=== PATIENT | male | born 1965 | race Caucasian/White ===

== ENCOUNTER 2022-04-11 15:24 | Emergency (ER) | payer MEDICARE, MEDICAID ==
[2022-04-11 15:41] VITALS: BP 175/156
[2022-04-11 15:56] LABS: BASO% 0.4 % (0-3); EOS% 1.1 % (0-8); HEMATOCRIT 48.7 % (39.0-50.0); HEMOGLOBIN 16.8 g/dl (14.0-18.0); IMMATURE GRANULOCYTES 0.3 % (0.0-5.0); LYMPH% 15.5 % (15-41); MEAN CELL VOLUME 86.2 fL CALC (80.0-100.0); MEAN CORPUSCULAR HGB 29.7 pG CALC (26.0-32.0); MEAN CORPUSCULAR HGB CONC 34.5 g/dL CAL (32.0-36.0); MONO% 5.9 % (2-13); NEUT# 8.11 thou/uL (1.82-7.42); NEUT% 76.8 % (42-76); RED BLOOD COUNT 5.65 mill/uL (4.70-6.10); RED CELL DISTRI WIDTH 13.3 % (11.5-15.5)
[2022-04-11] MEDS ORDERED: GABAPENTIN100 MG PO (16:02)
[2022-04-11] MEDS ORDERED: LYRICA50 MG PO (16:02)
[2022-04-11] MEDS ORDERED: ATORVASTATIN CA1 POW (16:03)
[2022-04-11] MEDS ORDERED: NORVASC2.5 M1 PO (16:04)
[2022-04-11] MEDS ORDERED: METFORMIN500 M2 PO (16:04)
[2022-04-11] MEDS ORDERED: FENOFIBRATE145 MG PO (16:04)
[2022-04-11] MEDS ORDERED: PRILOSEC20 MG/CAP PO (16:05)
[2022-04-11] MEDS ORDERED: LOSARTAN POTASS25 MG PO (16:05)
[2022-04-11] MEDS ORDERED: HUMALOG100 UNIT (16:06)
[2022-04-11] MEDS ORDERED: LANTUS100 UNIT (16:06)
[2022-04-11 16:18] LABS: ALKALINE PHOSPHATASE 95 u/l (38-126); ANION GAP 15 (6-22 (CALC)); BILIRUBIN, TOTAL 0.5 mg/dL (0.0-1.4); BUN 16 mg/dL (9-20); BUN/CREATININE RATIO 15 (12-20 (CALC)); CARBON DIOXIDE 24 mmol/l (22-30); CHLORIDE 105 mmol/l (95-108); CREATININE 1.1 mg/dL (0.7-1.3); GFR FOR AFR.AMER. > 60 ML/MIN (>=60 (CALC)); GFR OTHER RACES > 60 ML/MIN (>=60 (CALC)); LIPASE 155 u/l (23-300); POTASSIUM 4.4 mmol/l (3.5-5.1); SGOT/AST 43 u/l (17-59); SODIUM 140 mmol/l (137-146); TOTAL PROTEIN 8.3 g/dL (6.3-8.2)
[2022-04-11 18:49] LABS: URINE BILIRUBIN - DIPSTICK NEGATIVE (NEGATIVE); URINE BLOOD DIPSTICK NEGATIVE (NEGATIVE); URINE COLOR YELLOW; URINE GLUCOSE - DIPSTICK >=1000 mg/dL (NEGATIVE); URINE KETONE NEGATIVE (NEGATIVE); URINE LEUK ESTERASE NEGATIVE (NEGATIVE); URINE PH 7.5 (4.5-8.0); URINE PROTEIN - DIPSTICK 30 mg/dL (NEG-TRACE); URINE SPECIFIC GRAVITY 1.015; URINE UROBILINOGEN - DIPSTICK 0.2 E.U./dL (0.2)
[2022-04-11 18:50] LABS: URINE NITRITE - DIPSTICK NEGATIVE (Negative)
[2022-04-11] MEDS ORDERED: PREVACID30 M3 PO (19:11)
[2022-04-11] MEDS ORDERED: ONDANSETRON4 MG PO (19:11)
[2022-04-11] MEDS ORDERED: CARAFATE PO (19:11)
[2022-04-11 19:25] VITALS: BP 158/85
[2022-04-11 19:28] VITALS: BP 158/85
[2022-04-15] MEDS ORDERED: PROMETHAZINE HY25 M1 PO (15:05)
== END 2022-04-11 19:29 | disposition home or self-care (01) ==
LOC: ED 15:24
PROVIDERS: Emergency Medicine
DX: K29.70 Gastritis, unspecified, without bleeding (principal); E11.9 Type 2 diabetes mellitus without complications; Z79.4 Long term (current) use of insulin; Z79.84 Long term (current) use of oral hypoglycemic drugs
CPT/HCPCS: Q9967

== ENCOUNTER 2022-05-02 21:41 | Emergency (ER) | payer MEDICAID ==
[~2022-05-02] VITALS: Ht 180.3 cm; Wt 145.0 kg
[~2022-05-02 21:41] MED LIST: ATORVASTATIN CA1 POW; CARAFATE PO; FENOFIBRATE145 MG PO; GABAPENTIN100 MG PO; HUMALOG100 UNIT; LANTUS100 UNIT; LOSARTAN POTASS25 MG PO; LYRICA50 MG PO; METFORMIN500 M2 PO; NORVASC2.5 M1 PO; ONDANSETRON4 MG PO; PREVACID30 M3 PO; PRILOSEC20 MG/CAP PO; PROMETHAZINE HY25 M1 PO
[2022-05-02 23:02] LABS: BASO% 0.4 % (0-3); HEMATOCRIT 49.7 % (39.0-50.0); HEMOGLOBIN 16.6 g/dl (14.0-18.0); IMMATURE GRANULOCYTES 0.4 % (0.0-5.0); LYMPH% 13.5 % (15-41); MEAN CORPUSCULAR HGB 29.1 pG CALC (26.0-32.0); MEAN CORPUSCULAR HGB CONC 33.4 g/dL CAL (32.0-36.0); MONO% 5.4 % (2-13); NEUT# 12.36 thou/uL (1.82-7.42); NEUT% 78.3 % (42-76); RED BLOOD COUNT 5.71 mill/uL (4.70-6.10); RED CELL DISTRI WIDTH 13.1 % (11.5-15.5)
[2022-05-02 23:12] LABS: ALKALINE PHOSPHATASE 100 u/l (38-126); ANION GAP 16 (6-22 (CALC)); BILIRUBIN, TOTAL 0.7 mg/dL (0.0-1.4); BUN 17 mg/dL (9-20); BUN/CREATININE RATIO 12 (12-20 (CALC)); CARBON DIOXIDE 25 mmol/l (22-30); CHLORIDE 105 mmol/l (95-108); CREATININE 1.4 mg/dL (0.7-1.3); GFR FOR AFR.AMER. > 60 ML/MIN (>=60 (CALC)); GFR OTHER RACES 53 ML/MIN (>=60 (CALC)); LIPASE 161 u/l (23-300); POTASSIUM 4.9 mmol/l (3.5-5.1); SGOT/AST 58 u/l (17-59); SODIUM 140 mmol/l (137-146)
[2022-05-03 00:44] LABS: URINE BILIRUBIN - DIPSTICK NEGATIVE (NEGATIVE); URINE BLOOD DIPSTICK NEGATIVE (NEGATIVE); URINE COLOR YELLOW; URINE GLUCOSE - DIPSTICK >=1000 mg/dL (NEGATIVE); URINE KETONE 15 mg/dL (NEGATIVE); URINE LEUK ESTERASE NEGATIVE (NEGATIVE); URINE NITRITE - DIPSTICK NEGATIVE (Negative); URINE PH 5.5 (4.5-8.0); URINE PROTEIN - DIPSTICK 100 mg/dL (NEG-TRACE); URINE SPECIFIC GRAVITY >=1.030; URINE UROBILINOGEN - DIPSTICK 0.2 E.U./dL (0.2)
[2022-05-03 00:58] LABS: URINE MUCUS FEW hpf (NONE-FEW); URINE SQUAMOUS EPITHELIAL CELL FEW EPI/hpf (0-FEW); URINE WBC 0-2 WBC/hpf (0-5)
[2022-05-03] MEDS ORDERED: DICYCLOMINE10 MG PO (02:34)
[2022-05-03] MEDS ORDERED: PROCHLORPER25 MG RE (02:34)
[2022-05-03 02:42] VITALS: BP 184/113
== END 2022-05-03 02:53 | disposition home or self-care (01) ==
LOC: ED 21:41
PROVIDERS: Family Medicine
DX: R11.2 Nausea with vomiting, unspecified (principal); R10.11 Right upper quadrant pain; R10.12 Left upper quadrant pain; I10 Essential (primary) hypertension; E11.9 Type 2 diabetes mellitus without complications; Z79.84 Long term (current) use of oral hypoglycemic drugs; Z79.4 Long term (current) use of insulin
CPT/HCPCS: Q9967

== ENCOUNTER 2022-05-08 10:17 | Emergency (ER) | payer MEDICAID ==
[~2022-05-08] VITALS: Ht 180.3 cm; Wt 147.7 kg
[~2022-05-08 10:17] MED LIST changes: +DICYCLOMINE10 MG PO; +PROCHLORPER25 MG RE
[2022-05-08 10:35] VITALS: BP 185/108
[2022-05-08 10:52] LABS: BASO% 0.7 % (0-3); EOS% 2.2 % (0-8); HEMATOCRIT 49.4 % (39.0-50.0); HEMOGLOBIN 16.8 g/dl (14.0-18.0); IMMATURE GRANULOCYTES 0.4 % (0.0-5.0); MEAN CELL VOLUME 84.7 fL CALC (80.0-100.0); MEAN CORPUSCULAR HGB 28.8 pG CALC (26.0-32.0); MONO% 8.4 % (2-13); NEUT# 6.71 thou/uL (1.82-7.42); NEUT% 67.3 % (42-76); RED BLOOD COUNT 5.83 mill/uL (4.70-6.10)
[2022-05-08 10:54] LABS: GFR FOR AFR.AMER. > 60 ML/MIN (>=60 (CALC)); GFR OTHER RACES 57 ML/MIN (>=60 (CALC))
[2022-05-08 11:06] LABS: ALBUMIN 4.8 g/dL (3.2-5.0); ALKALINE PHOSPHATASE 109 u/l (38-126); ANION GAP 14 (6-22 (CALC)); BILIRUBIN, TOTAL 0.7 mg/dL (0.0-1.4); BUN 21 mg/dL (9-20); BUN/CREATININE RATIO 18 (12-20 (CALC)); CARBON DIOXIDE 23 mmol/l (22-30); CHLORIDE 107 mmol/l (95-108); CREATININE 1.2 mg/dL (0.7-1.3); GFR FOR AFR.AMER. > 60 ML/MIN (>=60 (CALC)); GFR OTHER RACES > 60 ML/MIN (>=60 (CALC)); LIPASE 150 u/l (23-300); SGOT/AST 49 u/l (17-59); SODIUM 140 mmol/l (137-146); TOTAL PROTEIN 8.2 g/dL (6.3-8.2)
[2022-05-08 12:13] LABS: URINE BILIRUBIN - DIPSTICK NEGATIVE (NEGATIVE); URINE BLOOD DIPSTICK NEGATIVE (NEGATIVE); URINE COLOR YELLOW; URINE GLUCOSE - DIPSTICK 250 mg/dL (NEGATIVE); URINE KETONE TRACE mg/dL (NEGATIVE); URINE LEUK ESTERASE NEGATIVE (NEGATIVE); URINE PROTEIN - DIPSTICK 100 mg/dL (NEG-TRACE); URINE SPECIFIC GRAVITY >=1.030; URINE UROBILINOGEN - DIPSTICK 0.2 E.U./dL (0.2)
[2022-05-08 12:15] LABS: URINE NITRITE - DIPSTICK NEGATIVE (Negative)
[2022-05-08 12:16] LABS: URINE MUCUS MODERATE hpf (NONE-FEW)
[2022-05-08 14:51] VITALS: BP 185/108
== END 2022-05-08 15:00 | disposition home or self-care (01) ==
LOC: ED 10:17
PROVIDERS: Family Medicine
DX: K59.00 Constipation, unspecified (principal); I10 Essential (primary) hypertension; E11.9 Type 2 diabetes mellitus without complications; Z79.84 Long term (current) use of oral hypoglycemic drugs; Z79.4 Long term (current) use of insulin

== ENCOUNTER 2022-05-15 12:24 | Observation (INO) | payer MEDICAID ==
[2022-05-15] VITALS (12 sets, daily range): BP systolic 136–187; BP diastolic 66–100
[~2022-05-15] VITALS: Ht 185.4 cm; Wt 147.0 kg
[~2022-05-15 12:24] MED LIST changes: -ATORVASTATIN CA1 POW; -HUMALOG100 UNIT; -LANTUS100 UNIT; +LANTUS100 UNIT SC; +LIPITOR40 M1 PO; +[UNRECOGNIZED DRUG - OTHER] SC
[2022-05-15 12:59] LABS: GFR FOR AFR.AMER. > 60 ML/MIN (>=60 (CALC)); GFR OTHER RACES > 60 ML/MIN (>=60 (CALC))
[2022-05-15 13:05] LABS: BASO% 0.6 % (0-3); EOS% 0.8 % (0-8); HEMATOCRIT 48.9 % (39.0-50.0); HEMOGLOBIN 16.8 g/dl (14.0-18.0); IMMATURE GRANULOCYTES 0.6 % (0.0-5.0); MEAN CELL VOLUME 84.7 fL CALC (80.0-100.0); MEAN CORPUSCULAR HGB 29.1 pG CALC (26.0-32.0); MEAN CORPUSCULAR HGB CONC 34.4 g/dL CAL (32.0-36.0); MONO% 4.4 % (2-13); NEUT# 9.08 thou/uL (1.82-7.42); NEUT% 82.6 % (42-76); RED BLOOD COUNT 5.77 mill/uL (4.70-6.10); RED CELL DISTRI WIDTH 12.8 % (11.5-15.5)
[2022-05-15 13:10] LABS: ANION GAP 15 (6-22 (CALC)); BUN 19 mg/dL (9-20); BUN/CREATININE RATIO 22 (12-20 (CALC)); CARBON DIOXIDE 24 mmol/l (22-30); CHLORIDE 102 mmol/l (95-108); CREATININE 0.8 mg/dL (0.7-1.3); GFR FOR AFR.AMER. > 60 ML/MIN (>=60 (CALC)); GFR OTHER RACES > 60 ML/MIN (>=60 (CALC)); POTASSIUM 4.5 mmol/l (3.5-5.1); SODIUM 136 mmol/l (137-146)
[2022-05-15 13:11] LABS: ALBUMIN 4.8 g/dL (3.2-5.0); ALKALINE PHOSPHATASE 150 u/l (38-126); BILIRUBIN, TOTAL 0.6 mg/dL (0.2-1.3); LIPASE 105 u/l (23-300); SGOT/AST 43 u/l (17-59); TOTAL PROTEIN 8.3 g/dL (6.3-8.2)
[2022-05-15 14:26] LABS: URINE BILIRUBIN - DIPSTICK NEGATIVE (NEGATIVE); URINE BLOOD DIPSTICK NEGATIVE (NEGATIVE); URINE COLOR YELLOW; URINE GLUCOSE - DIPSTICK >=1000 mg/dL (NEGATIVE); URINE KETONE TRACE mg/dL (NEGATIVE); URINE LEUK ESTERASE NEGATIVE (Negative); URINE NITRITE - DIPSTICK NEGATIVE (Negative); URINE PROTEIN - DIPSTICK 30 mg/dL (NEG-TRACE); URINE SPECIFIC GRAVITY 1.015; URINE UROBILINOGEN - DIPSTICK 0.2 E.U./dL (0.2)
[2022-05-15 14:43] LABS: URINE CLARITY SL CLOUDY
[2022-05-15 14:44] LABS: URINE EPITHELIAL CELLS FEW EPI/hpf (0-FEW); URINE MUCUS MODERATE hpf (NONE-FEW)
[2022-05-16] VITALS: BP 137/66
[2022-05-16 03:06] LABS: CHOLESTEROL HDL RATIO 8.1 (<4.4 (CALC)); HDL CHOLESTEROL 34 mg/dL (39.0-59.0); MAGNESIUM 1.7 mg/dL (1.6-2.3); TOTAL CHOLESTEROL 275 mg/dl (0-199)
[2022-05-16 03:14] LABS: TOTAL TRIGLYCERIDES 993 mg/dl (0-149)
[2022-05-16 03:58] VITALS: BP 141/62
[2022-05-16 04:00] VITALS: BP 141/62
[2022-05-16 06:43] VITALS: BP 167/83
[2022-05-16] MEDS ORDERED: VENTOLIN HF1 IN (07:23)
[2022-05-16 11:19] VITALS: BP 147/82
[2022-05-16] MEDS ORDERED: LOSARTAN POTASS25 MG PO (11:38)
[2022-05-16] MEDS ORDERED: NORVASC2.5 M1 PO (11:38)
[2022-05-16] MEDS ORDERED: LIPITOR40 M1 PO (11:38)
[2022-05-16] MEDS ORDERED: [UNRECOGNIZED DRUG - OTHER] SC (11:39)
[2022-05-16] MEDS ORDERED: ONDANSETRON4 MG PO (11:39)
[2022-05-16] MEDS ORDERED: PRILOSEC20 MG/CAP PO (11:39)
[2022-05-16] MEDS ORDERED: LANTUS100 UNIT SC (11:39)
== END 2022-05-16 15:24 | disposition home or self-care (01) ==
LOC: ED 12:24 → ED-I 16:40 → ED 19:15 → MS2 19:16 → ED 19:16 → MS2 05-16 15:24
PROVIDERS: Emergency Medicine; ADMIT Internal Medicine; ATTEND Internal Medicine
DX: R07.9 Chest pain, unspecified (principal); R10.13 Epigastric pain; R11.0 Nausea; I10 Essential (primary) hypertension; E11.9 Type 2 diabetes mellitus without complications; I25.10 Atherosclerotic heart disease of native coronary artery without angina pectoris; Z79.4 Long term (current) use of insulin; Z95.5 Presence of coronary angioplasty implant and graft; E78.5 Hyperlipidemia, unspecified; E66.9 Obesity, unspecified; T38.3X6A Underdosing of insulin and oral hypoglycemic [antidiabetic] drugs, initial encounter; Z91.128 Patient's intentional underdosing of medication regimen for other reason
CPT/HCPCS: G0378; J1650; Q9967

== ENCOUNTER 2022-06-24 20:36 | Observation (INO) | payer MEDICAID ==
[2022-06-24] VITALS (9 sets, daily range): BP systolic 143–198; BP diastolic 74–125
[~2022-06-24] VITALS: Ht 185.4 cm; Wt 145.0 kg
[2022-06-24 22:03] LABS: BASO% 0.6 % (0-3); EOS% 1.1 % (0-8); HEMATOCRIT 49.6 % (39.0-50.0); HEMOGLOBIN 16.7 g/dl (14.0-18.0); IMMATURE GRANULOCYTES 0.6 % (0.0-5.0); LYMPH% 14.5 % (15-41); MEAN CELL VOLUME 84.6 fL CALC (80.0-100.0); MEAN CORPUSCULAR HGB 28.5 pG CALC (26.0-32.0); MEAN CORPUSCULAR HGB CONC 33.7 g/dL CAL (32.0-36.0); MONO% 4.4 % (2-13); NEUT# 7.45 thou/uL (1.82-7.42); NEUT% 78.8 % (42-76); RED BLOOD COUNT 5.86 mill/uL (4.70-6.10)
[2022-06-24 22:46] LABS: ALBUMIN 4.7 g/dL (3.2-5.0); ALKALINE PHOSPHATASE 92 u/l (38-126); AMYLASE 134 u/l (30-110); ANION GAP 16 (6-22 (CALC)); BILIRUBIN, TOTAL 0.7 mg/dL (0.2-1.3); BUN 20 mg/dL (9-20); BUN/CREATININE RATIO 20 (12-20 (CALC)); CARBON DIOXIDE 25 mmol/l (22-30); CHLORIDE 102 mmol/l (95-108); GFR FOR AFR.AMER. > 60 ML/MIN (>=60 (CALC)); GFR OTHER RACES > 60 ML/MIN (>=60 (CALC)); LIPASE 93 u/l (23-300); POTASSIUM 4.6 mmol/l (3.5-5.1); SGOT/AST 37 u/l (17-59); SODIUM 138 mmol/l (137-146); TOTAL PROTEIN 7.7 g/dL (6.3-8.2)
[2022-06-24 23:15] LABS: URINE BILIRUBIN - DIPSTICK NEGATIVE (NEGATIVE); URINE BLOOD DIPSTICK NEGATIVE (NEGATIVE); URINE COLOR YELLOW; URINE GLUCOSE - DIPSTICK 500 mg/dL (NEGATIVE); URINE KETONE 40 mg/dL (NEGATIVE); URINE LEUK ESTERASE NEGATIVE (NEGATIVE); URINE NITRITE - DIPSTICK NEGATIVE (Negative); URINE PH 5.5 (4.5-8.0); URINE PROTEIN - DIPSTICK 100 mg/dL (NEG-TRACE); URINE SPECIFIC GRAVITY >=1.030; URINE UROBILINOGEN - DIPSTICK 0.2 E.U./dL (0.2)
[2022-06-24 23:23] LABS: URINE SQUAMOUS EPITHELIAL CELL FEW EPI/hpf (0-FEW)
[2022-06-25] VITALS (14 sets, daily range): BP systolic 131–163; BP diastolic 72–93
[2022-06-25] MEDS ORDERED: VENTOLIN HF1 IN (02:16)
[2022-06-26] VITALS (11 sets, daily range): BP systolic 140–162; BP diastolic 55–95
[2022-06-26 05:19] LABS: BASO% 0.1 % (0-3); HEMATOCRIT 44.8 % (39.0-50.0); HEMOGLOBIN 15.1 g/dl (14.0-18.0); IMMATURE GRANULOCYTES 0.6 % (0.0-5.0); LYMPH% 8.8 % (15-41); MEAN CORPUSCULAR HGB 28.7 pG CALC (26.0-32.0); MEAN CORPUSCULAR HGB CONC 33.7 g/dL CAL (32.0-36.0); MONO% 4.2 % (2-13); NEUT# 10.8 thou/uL (1.82-7.42); NEUT% 86.3 % (42-76); RED BLOOD COUNT 5.27 mill/uL (4.70-6.10); RED CELL DISTRI WIDTH 13.1 % (11.5-15.5)
[2022-06-26 05:34] LABS: ALBUMIN 4.4 g/dL (3.2-5.0); ALKALINE PHOSPHATASE 75 u/l (38-126); ANION GAP 16 (6-22 (CALC)); BILIRUBIN, TOTAL 0.6 mg/dL (0.2-1.3); BUN 24 mg/dL (9-20); BUN/CREATININE RATIO 24 (12-20 (CALC)); CARBON DIOXIDE 24 mmol/l (22-30); CHLORIDE 101 mmol/l (95-108); GFR FOR AFR.AMER. > 60 ML/MIN (>=60 (CALC)); GFR OTHER RACES > 60 ML/MIN (>=60 (CALC)); POTASSIUM 4.2 mmol/l (3.5-5.1); SGOT/AST 28 u/l (17-59); SODIUM 136 mmol/l (137-146); TOTAL PROTEIN 7.1 g/dL (6.3-8.2)
[2022-06-27 00:19] VITALS: BP 139/71
[2022-06-27 03:33] VITALS: BP 148/77
[2022-06-27 04:00] VITALS: BP 148/77
[2022-06-27 05:12] LABS: HEMOGLOBIN 15.8 g/dl (14.0-18.0); MEAN CELL VOLUME 84.8 fL CALC (80.0-100.0); MEAN CORPUSCULAR HGB 28.5 pG CALC (26.0-32.0); MEAN CORPUSCULAR HGB CONC 33.6 g/dL CAL (32.0-36.0); RED BLOOD COUNT 5.54 mill/uL (4.70-6.10)
[2022-06-27 05:30] LABS: ALBUMIN 4.5 g/dL (3.2-5.0); ALKALINE PHOSPHATASE 75 u/l (38-126); ANION GAP 14 (6-22 (CALC)); BILIRUBIN, TOTAL 0.8 mg/dL (0.2-1.3); BUN 33 mg/dL (9-20); BUN/CREATININE RATIO 33 (12-20 (CALC)); CARBON DIOXIDE 25 mmol/l (22-30); CHLORIDE 99 mmol/l (95-108); GFR FOR AFR.AMER. > 60 ML/MIN (>=60 (CALC)); GFR OTHER RACES > 60 ML/MIN (>=60 (CALC)); POTASSIUM 4.8 mmol/l (3.5-5.1); SGOT/AST 29 u/l (17-59); SODIUM 133 mmol/l (137-146); TOTAL PROTEIN 7.4 g/dL (6.3-8.2)
[2022-06-27 05:35] LABS: MAGNESIUM 2.3 mg/dL (1.6-2.3)
[2022-06-27 06:05] VITALS: BP 142/74
[2022-06-27 09:45] VITALS: BP 151/82
[2022-06-27 17:42] VITALS: BP 144/73
[2022-06-27] MEDS ORDERED: TAM75CAP PO (18:21)
[2022-06-27] MEDS ORDERED: MEDDOSEPAK PO (18:22)
== END 2022-06-27 20:00 | disposition home or self-care (01) ==
LOC: ED 20:36 → ED-I 06-25 00:17 → ED 06-25 00:25 → MS2 06-25 00:26
PROVIDERS: Emergency Medicine; Nurse Practitioner Family; ADMIT Internal Medicine; ATTEND Internal Medicine
DX: J10.1 Influenza due to other identified influenza virus with other respiratory manifestations (principal); J44.1 Chronic obstructive pulmonary disease with (acute) exacerbation; K59.09 Other constipation; R09.02 Hypoxemia; E11.65 Type 2 diabetes mellitus with hyperglycemia; T38.0X5A Adverse effect of glucocorticoids and synthetic analogues, initial encounter; I10 Essential (primary) hypertension; E78.5 Hyperlipidemia, unspecified; I25.10 Atherosclerotic heart disease of native coronary artery without angina pectoris; E66.9 Obesity, unspecified; Z95.5 Presence of coronary angioplasty implant and graft; Z85.6 Personal history of leukemia; Z20.822 Contact with and (suspected) exposure to COVID-19
CPT/HCPCS: G0378; J1650; J1956; Q9967; S0164

== ENCOUNTER 2022-07-13 08:29 | Emergency (ER) | payer MEDICAID ==
[~2022-07-13] VITALS: Ht 185.4 cm; Wt 145.0 kg
[~2022-07-13 08:29] MED LIST changes: +MEDDOSEPAK PO; +TAM75CAP PO; +VENTOLIN HF1 IN
[2022-07-13 08:44] VITALS: BP 149/98
[2022-07-13 09:01] VITALS: BP 144/87
[2022-07-13 09:31] LABS: BASO% 0.7 % (0-3); EOS% 2.2 % (0-8); HEMATOCRIT 44.4 % (39.0-50.0); HEMOGLOBIN 14.7 g/dl (14.0-18.0); IMMATURE GRANULOCYTES 0.2 % (0.0-5.0); LYMPH% 15.6 % (15-41); MEAN CELL VOLUME 86.2 fL CALC (80.0-100.0); MEAN CORPUSCULAR HGB 28.5 pG CALC (26.0-32.0); MEAN CORPUSCULAR HGB CONC 33.1 g/dL CAL (32.0-36.0); MONO% 6.4 % (2-13); NEUT# 7.06 thou/uL (1.82-7.42); NEUT% 74.9 % (42-76); RED BLOOD COUNT 5.15 mill/uL (4.70-6.10); RED CELL DISTRI WIDTH 13.2 % (11.5-15.5)
[2022-07-13 09:56] LABS: ALBUMIN 4.1 g/dL (3.2-5.0); ALKALINE PHOSPHATASE 98 u/l (38-126); BUN 17 mg/dL (9-20); BUN/CREATININE RATIO 20 (12-20 (CALC)); CARBON DIOXIDE 27 mmol/l (22-30); CHLORIDE 106 mmol/l (95-108); CREATININE 0.9 mg/dL (0.7-1.3); GFR FOR AFR.AMER. > 60 ML/MIN (>=60 (CALC)); GFR OTHER RACES > 60 ML/MIN (>=60 (CALC)); LIPASE 200 u/l (23-300); POTASSIUM 4.1 mmol/l (3.5-5.1); SGOT/AST 39 u/l (17-59); TOTAL PROTEIN 6.7 g/dL (6.3-8.2)
[2022-07-13 09:58] LABS: ANION GAP 11 (6-22 (CALC)); BILIRUBIN, TOTAL 0.4 mg/dL (0.2-1.3); SODIUM 140 mmol/l (137-146)
[2022-07-13 11:01] VITALS: BP 182/89
[2022-07-13 11:31] VITALS: BP 187/86
[2022-07-13 12:06] LABS: URINE BILIRUBIN - DIPSTICK NEGATIVE (NEGATIVE); URINE BLOOD DIPSTICK NEGATIVE (NEGATIVE); URINE COLOR YELLOW; URINE GLUCOSE - DIPSTICK NEGATIVE (NEGATIVE); URINE KETONE NEGATIVE (NEGATIVE); URINE LEUK ESTERASE NEGATIVE (NEGATIVE); URINE PH 6.5 (4.5-8.0); URINE PROTEIN - DIPSTICK TRACE mg/dL (NEG-TRACE); URINE SPECIFIC GRAVITY 1.025; URINE UROBILINOGEN - DIPSTICK 0.2 E.U./dL (0.2)
[2022-07-13 12:13] LABS: URINE NITRITE - DIPSTICK NEGATIVE (Negative)
[2022-07-13] MEDS ORDERED: ZOFRAN4 MG/TAB PO (12:22)
[2022-07-13 12:31] VITALS: BP 193/124
[2022-07-13 12:59] VITALS: BP 193/124
== END 2022-07-13 13:30 | disposition home or self-care (01) ==
LOC: ED 08:29
PROVIDERS: Family Medicine
DX: R11.2 Nausea with vomiting, unspecified (principal); I10 Essential (primary) hypertension; E11.9 Type 2 diabetes mellitus without complications; J44.1 Chronic obstructive pulmonary disease with (acute) exacerbation; C95.90 Leukemia, unspecified not having achieved remission